=== PATIENT | male | born 1990 | race Caucasian/White ===

== ENCOUNTER 2023-10-02 11:49 | Emergency (ER) | payer SELFPAY ==
[2023-10-02 11:59] VITALS: TEMP 98.8; BMI 26.6
[2023-10-02] MEDS ORDERED: DIPHTH,PERTUSS(ACELL),TET 0.5 ML DISP.SYRIN IM ONE ×2 (11:59→12:04)
[2023-10-02 13:41] VITALS: BP 127/89; PULSE 74; RESP 16
== END 2023-10-02 13:40 | disposition home or self-care (01) ==
LOC: FER 11:49
PROC: 0HQGXZZ Repair Left Hand Skin, External Approach (ICD-10-PCS; principal; 2023-10-02)
PROC: 3E0234Z Introduction of Serum, Toxoid and Vaccine into Muscle, Percutaneous Approach (ICD-10-PCS; 2023-10-02)
DX: S61.213A Laceration without foreign body of left middle finger without damage to nail, initial encounter (principal); W31.2XXA Contact with powered woodworking and forming machines, initial encounter
CPT/HCPCS: 73130-TC-LT-FY; 90715; 99283-25